=== PATIENT | male | born 1975 | race African-American/Black ===

== ENCOUNTER 2017-06-06 20:17 | Emergency (ER) | payer OTHER ==
[~2017-06-06] VITALS: Ht 177.8 cm; Wt 71.2 kg
== END 2017-06-06 22:22 | disposition home or self-care (01) ==
LOC: CED 20:17 → CFTX 20:17
DX: L02.214 Cutaneous abscess of groin (principal); F17.210 Nicotine dependence, cigarettes, uncomplicated
CPT/HCPCS: 99282